=== PATIENT | male | born 1990 | race African-American/Black ===

== ENCOUNTER 2019-07-19 00:49 | Emergency (ER) | payer OTHER ==
[~2019-07-19] VITALS: Ht 182.9 cm; Wt 68.0 kg
[2019-07-19 00:58] VITALS: BP 129/92
--- NOTE | 2019-07-19 01:00 | NUR ---
ED Nurse Note: Patient brought in by [employer] for medical clearance, pt c/o cough two weeks ago, no current respiratory issues at this time. Patient aao x 4 and ambulatory with steady gait. No c/o pain. Patient stable upon assessment.
[2019-07-19 01:37] VITALS: BP 125/89
--- NOTE | 2019-07-19 01:37 | NUR ---
ER DISCHARGE NOTE: Patient is medically cleared per ERMD, pt is aox4, on room air, with stable vital signs. [employer] was given dc instructions, verbalized understanding, pt id band removed. pt is able to ambulate with steady gait. [employer] took all belongings. pt stable upon discharge.
--- NOTE | 2019-07-19 02:11 | Emergency Room Report ---
History of Present Illness General Chief Complaint: Medical Clearance Source: Patient Present Illness HPI Patient presents by police department for clearance for booking Upon being picked up patient had reported that he had cough for the past 2 weeks Denies any fevers denies any recent travel denies any contact with known coronavirus positive patient Denies any pleurisy denies any phlegm production COVID-19 risk:Travel to affect: No Has patient experienced darnell: No Allergies: Coded Allergies: No Known Allergies (Unverified , 07/19/19) Patient History Past Medical History: see triage record Reviewed Nursing Documentation: PMH: Agreed; PSxH: Agreed Nursing Documentation-PMH Past Medical History: No Stated History Review of Systems All Other Systems: negative except mentioned in HPI Physical Exam Vital Signs Date Time Temp Pulse Resp B/P (MAP) Pulse Ox O2 Delivery O2 Flow Rate FiO2 07/19/19 00:52 98.4 63 20 129/92 (104) 98 Room Air Sp02 EP Interpretation: reviewed, normal General Appearance: well appearing, no apparent distress Head: normocephalic, atraumatic Eyes: bilateral eye PERRL, bilateral eye EOMI ENT: hearing grossly normal, EOM grossly intact Neck: supple Respiratory: lungs clear, no respiratory distress, no retraction Cardiovascular #1: regular rate, rhythm Gastrointestinal: non tender, soft Musculoskeletal: normal inspection Neurologic: alert, oriented x3 Psychiatric: normal inspection Skin: no rash Lymphatic: normal inspection Medical Decision Making Diagnostic Impression: Primary Impression: cough ER Course Multiple differentials including but not limited to TB, pneumonia, URI entertained patient does not have any cough during my exam or evaluation Lung sounds are clear Patient does not meet criteria for testing through Department of Health Patient also is afebrile Patient is cleared medically Self isolation precautions also provided Last Vital Signs Date Time Temp Pulse Resp B/P (MAP) Pulse Ox O2 Delivery O2 Flow Rate FiO2 07/19/19 01:37 98.3 65 18 125/89 99 Room Air Status: unchanged Disposition: D/C TO LAW ENFORCEMENT IN [facility] Condition: Stable Referrals: [facility] Medley [facility] Departure Forms: Alf Clearance Patient Instructions: Medical Screening Exam Additional Instructions: Your signs and symptoms do have some similarity to the coronavirus. At this time testing was not recommended by Department of Health. It is recommended that you have self isolation for the next 14 days. Use healthy precautions and appropriate hygiene. Return to the emergency room for worsening respirations and shortness of breath Patient is provided with the discharge instructions notified to follow up with primary doctor in the next 2-3 days otherwise return to the er with any worsening symptoms. Please note that this report is being documented using DRAGON technology. This can lead to erroneous entry secondary to incorrect interpretation by the dictating instrument. Lin Farley DO Jul 19, 2019 02:11
== END 2019-07-19 01:37 ==
LOC: EMR 01:08
DX: R05 Cough (principal)
CPT/HCPCS: 99281